=== PATIENT | male | born 1945 | race Caucasian/White ===

== ENCOUNTER 2020-01-27 23:46 | Inpatient (IN) | payer MEDICARE, OTHER ==
[2020-01-27] MEDS ORDERED: Boostrix 0.5 ML VIAL ONE (23:56)
[2020-01-28] MEDS ORDERED: Lorazepam 2 MG/ML VIAL ONE (00:06)
[2020-01-28 00:19] LABS: #Basophils 0.1 thou/uL (0.0-0.2); #Monocytes 0.7 thou/uL (0.11-0.59); #Neutrophils 3.5 thou/uL (1.40-6.50); %Basophils 1.7 % (0.0-1.0); %Eosinophils 0.1 % (0.0-10.0); %Lymphocytes 31.4 % (21.0-51.0); %Monocytes 11.6 % (0.0-10.0); %Neutrophils 55.2 % (42.0-75.0); Mean Corpuscular HGB CONC 35.4 g/dL (32.0-36.0); Mean Corpuscular Hemoglobin 34.9 pg (27.0-31.0); Mean Corpuscular Volume 98.6 fL (78.0-98.0); Mean Platelet Volume 8.1 fL (7.4-10.4); Platelet Count 185 thou/uL (130-400); Red Blood Cell (RBC) Count 2.88 mill/uL (4.70-6.10); White Blood Cell (WBC) Count 6.4 thou/uL (4.8-10.8)
[2020-01-28 00:25] LABS: INR-International Normal Ratio 1.1; PTT 27.5 sec (22.9-36.1); Prothrombin Time 14.5 sec (12.0-14.7)
[2020-01-28 00:41] LABS: ALT (SGPT) 56 U/L (8-55); AST (SGOT) 39 U/L (5-34); Albumin 2.8 g/dL (3.4-4.8); Alcohol 233 mg/dL (Less than 10); Alkaline Phosphatase 54 U/L (40-110); Anion Gap 15 mmol/L (10-20); BUN (Urea Nitrogen) 13 mg/dL (8.4-25.7); Bilirubin, Total 0.3 mg/dL (0.2-1.2); Calc. Creatinine Clearance 0 mL/min (70-130); Calcium 7.4 mg/dL (7.8-10.44); Carbon Dioxide 15 mmol/L (23-31); Chloride 115 mmol/L (98-107); Estimated GFR-MDRD 56; Globulin 1.8 g/dL (2.4-3.5); Glucose 113 mg/dL (83-110); Potassium 3.3 mmol/L (3.5-5.1); Protein, Total 4.6 g/dL (5.8-8.1); Sodium 142 mmol/L (136-145)
[2020-01-28] MEDS ORDERED: Lidocaine 1% (PF) 30 ML VIAL ONE (01:00)
[2020-01-28] MEDS ORDERED: Calcium Chloride 1 GM/10 ML Abboject SYRINGE ONE (01:13)
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
[2020-01-28] MEDS ORDERED: Potassium Chloride 40 MEQ in Sodium Chloride 0.9% 250 ML 250 ML IVPB SCH (01:30)
[2020-01-28 02:40] LABS: Acetaminophen Less than 6.0 mcg/mL (10.0-30.0); Alcohol 230 mg/dL (Less than 10); Salicylate Less than 8.0 mg/dL (15.0-30.0)
[2020-01-28] MEDS ORDERED: Dextrose 50% Abboject 50 ML SYRINGE SLOW IVP PRN (02:51)
[2020-01-28] MEDS ORDERED: Boostrix 0.5 ML VIAL IM ONE (02:51)
[2020-01-28] MEDS ORDERED: Ondansetron PF 4 MG/2 ML Vial IVP PRN (02:51)
[2020-01-28] MEDS ORDERED: Dextrose 5% in Water 1,000 ML IV PRN (02:51)
[2020-01-28] MEDS ORDERED: Haloperidol Lactate 5 MG/ML VIAL SLOW IVP PRN (02:56)
[2020-01-28 03:25] LABS: #Basophils 0.1 thou/uL (0.0-0.2); #Lymphocytes 1.4 thou/uL (1.20-3.40); #Monocytes 0.5 thou/uL (0.11-0.59); #Neutrophils 5.7 thou/uL (1.40-6.50); %Basophils 0.7 % (0.0-1.0); %Eosinophils 0.5 % (0.0-10.0); %Lymphocytes 18.2 % (21.0-51.0); %Monocytes 6.8 % (0.0-10.0); %Neutrophils 73.7 % (42.0-75.0); Hemoglobin 12.3 g/dL (14.0-18.0); Mean Corpuscular HGB CONC 32.8 g/dL (32.0-36.0); Mean Corpuscular Hemoglobin 31.3 pg (27.0-31.0); Mean Corpuscular Volume 95.5 fL (78.0-98.0); Mean Platelet Volume 9.1 fL (7.4-10.4); Platelet Count 107 thou/uL (130-400); RBC Distribution Width 13.5 % (11.5-14.5); Red Blood Cell (RBC) Count 3.93 mill/uL (4.70-6.10); White Blood Cell (WBC) Count 7.7 thou/uL (4.8-10.8)
--- NOTE | 2020-01-28 03:25 | OP ---
DATE OF PROCEDURE: 01/28/2020 PROCEDURE: Complex laceration repair x2. INDICATION: Fall with scalp laceration. Consent is verbal and implied. Preparation, hand hygiene was observed. Laceration length first on the right scalp approximately 4 cm linear laceration and next laceration is just superior to the eyebrow. It is a jagged irregular approximately 12 cm in total length. This is a partial avulsion of the skull. ANESTHESIA: A right supraorbital nerve block with 1% lidocaine, total of 2 mL. Mostly successful analgesia, however the more superior laceration did do local infiltration with a total administration of approximately 8 mL in total. We thoroughly irrigated with sterile saline 1 L jet irrigation to both removing any foreign bodies and clots. Did have quite copious bleeding. This was dressed with pressure dressing while we were irrigating the wound and the more superior linear wound, there were some foreign bodies. These were removed and were able to evaluate the entirety of the wound. The more jagged wound, there were no foreign bodies. There was a blood clot noted. I was able to remove this and thoroughly irrigate through the clot. I was able to evaluate the entire wound. There does not appear to be any vascular or periosteal damage noted, seems to be skin and soft tissue defect only. Skin closure, did five simple interrupted 4-0 Prolene sutures to more superior with good margins. Next, turned my attention to the more jagged wound and did a total of 11 sutures with good margins. These were simple interrupted with 4-0 Prolene also. The wound was dressed with a pressure dressing for small hematoma about the more superior wound. TOTAL BLOOD LOSS: Approximately 10 to 15 mL. COMPLICATIONS: None. Patient tolerated the procedure well. Sharps were disposed of and no immediate complications were noted. Job ID: [id number] [facility]
[2020-01-28 03:40] LABS: Anion Gap 16 mmol/L (10-20); BUN (Urea Nitrogen) 12 mg/dL (8.4-25.7); Calc. Creatinine Clearance 0 mL/min (70-130); Calcium 8.4 mg/dL (7.8-10.44); Carbon Dioxide 13 mmol/L (23-31); Chloride 116 mmol/L (98-107); Estimated GFR-MDRD 60; Glucose 119 mg/dL (83-110); Potassium 4.4 mmol/L (3.5-5.1); Sodium 141 mmol/L (136-145)
[2020-01-28 03:43] VITALS: BMI 36.2
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
[2020-01-28] MEDS: Acetaminophen 325 MG TAB PO SCH ×2 (06:38→12:22)
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
--- NOTE | 2020-01-28 08:58 | RAD ---
Exam: Chest one view HISTORY:Trauma. Fall. Pain. Comparison: None. FINDINGS: Cardiac silhouette: Normal Aorta: Unremarkable Pulmonary vessels: Normal Costophrenic angles: Clear LUNGS: No masses or consolidation. Pneumothorax: None Osseous abnormalities: None IMPRESSION: No acute cardiopulmonary process.
[2020-01-28] MEDS ORDERED: Famotidine 20 MG TAB PO SCH (09:00)
[2020-01-28] MEDS ORDERED: Folic Acid 1 MG TAB PO SCH (09:00)
[2020-01-28] MEDS ORDERED: Thiamine 100 MG TAB PO SCH (09:00)
[2020-01-28 12:46] LABS: SARS-CoV-2 MS2 Positive; SARS-CoV-2 N Gene Negative; SARS-CoV-2 S Gene Negative; SARS-CoV-2 by NAA Not Detected (NotDetected); SARS-CoV-2 orf1ab Negative
[2020-01-28 15:35] VITALS: BP 145/84; TEMP 98
[2020-01-28] MEDS ORDERED: Oxazepam 10 MG CAP PO SCH (21:00)
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
== END 2020-01-28 16:50 | disposition home or self-care (01) | DRG 896 ==
LOC: ERS 23:46 → CCU 01-28 00:55 → SURG A 01-28 11:37
PROVIDERS: ADMIT Specialist; ATTEND Specialist
PROC: 0HQ0XZZ Repair Scalp Skin, External Approach (ICD-10-PCS; principal; 2020-01-28)
PROC: 30233N1 Transfusion of Nonautologous Red Blood Cells into Peripheral Vein, Percutaneous Approach (ICD-10-PCS; 2020-01-28)
DX: F10.129 Alcohol abuse with intoxication, unspecified (principal); R57.8 Other shock; D62 Acute posthemorrhagic anemia; S01.81XA Laceration without foreign body of other part of head, initial encounter; I10 Essential (primary) hypertension; I95.9 Hypotension, unspecified; F43.10 Post-traumatic stress disorder, unspecified; H40.9 Unspecified glaucoma; E78.5 Hyperlipidemia, unspecified; F41.9 Anxiety disorder, unspecified; Z20.828 Contact with and (suspected) exposure to other viral communicable diseases; G47.33 Obstructive sleep apnea (adult) (pediatric); Z79.82 Long term (current) use of aspirin; Z87.891 Personal history of nicotine dependence; Z90.49 Acquired absence of other specified parts of digestive tract
CPT/HCPCS: 36415; 36430; 70450; 71045; 72125; 80053; 80307; 85025; 85610; 85730; 86850; 86900; 86901; 87635; 90715; 93005; 94760; 96365; 96374; 96375; 99292; J2001; J2060; J3480; J7050; P9016; U0003